=== PATIENT | female | born 1970 | race African-American/Black ===

== ENCOUNTER 2016-11-01 12:11 | Emergency (ER) | payer BC ==
[~2016-11-01] VITALS: Ht 175.3 cm; Wt 72.7 kg
[~2016-11-01 12:11] MED LIST: VITAMINS
[2016-11-01] MEDS ORDERED: FISH OIL300 MG PO (13:11)
[2016-11-01] MEDS ORDERED: BIOTIN1000 MICRO PO (13:11)
[2016-11-01] MEDS ORDERED: FOCALIN10 MG PO (13:11)
[2016-11-01 13:15] LABS: ADD MIUA? NO; BILIRUBIN NEGATIVE; BLOOD NEGATIVE; COLOR YELLOW ((YELLOW)); GLUCOSE (STRIP) NEGATIVE; KETONES NEGATIVE; LEUKOCYTES NEGATIVE; NITRITE NEGATIVE; PROTEIN (STRIP) NEGATIVE; SPECIFIC GRAVITY 1.011 (1.000-1.030); UCUL ADDED? NO; UROBILINOGEN 0.2 MG/DL (0.2-1.0)
[2016-11-01 13:54] LABS: HEMATOCRIT 41.3 % (36.0-46.0); MCHC 32.2 G/DL (30.0-36.0); MCV 93.2 FL (83-99); MEAN PLAT.VOLUME 10.2 uM^3 (9.5-12.4); PLATELET COUNT 210 K/uL (156-360); RBC DIS.WIDTH-CV 12.2 % (11.8-14.6); RBC DIS.WIDTH-SD 40.7 % (39-53); RED BLOOD COUNT 4.43 M/uL (3.80-5.20)
[2016-11-01 14:26] LABS: CHLORIDE 105 MEQ/L (99-109); POTASSIUM 3.8 MEQ/L (3.7-5.4); SODIUM 139 MEQ/L (136-147)
[2016-11-01 14:34] LABS: QUANTITATIVE HCG < 4.0 MIU/ML
[2016-11-01 15:01] LABS: ALKALINE PHOSPHATASE 55 IU/L (3-129); ANION GAP 7 MEQ/L (2-14); GFR ESTIMATE (CALCULATED) > 59 mL/min/; GLUCOSE 84 mg/dL (70-99); SAMPLE HEMOLYSIS CHECK 0; SAMPLE ICTERIC CHECK 0; SAMPLE LIPEMIA CHECK 0; TOTAL BILIRUBIN 0.4 MG/DL (0.0-1.0); UREA NITROGEN (BUN) 9 mg/dL (9-23)
[2016-11-01] MEDS ORDERED: TORADOL10 MG PO (17:11)
[2016-11-01 17:47] VITALS: BP 129/87
== END 2016-11-01 17:27 | disposition home or self-care (01) ==
LOC: RME 12:11 → EME 12:11 → RME 17:27
DX: N83.202 Unspecified ovarian cyst, left side (principal); Z88.6 Allergy status to analgesic agent; Z88.8 Allergy status to other drugs, medicaments and biological substances
CPT/HCPCS: 76856; 80053; 81003; 84702; 85027; 99281; 99284; J1885